=== PATIENT | male | born 1975 | race Caucasian/White ===

== ENCOUNTER 2020-02-16 09:50 | Inpatient (IN) | payer SELFPAY ==
[~2020-02-16] VITALS: Ht 193 cm; Wt 95.0 kg
[2020-02-16] MEDS ORDERED: DEXAMETHASONE SOD PHOS 4 MG/ML VIAL. IVP ONE (10:00)
[2020-02-16] MEDS ORDERED: IV NORMAL SALINE 1,000ML 1,000 ML IV SCH (10:00)
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
[2020-02-16 10:31] LABS: BASO % 0 % (0-3); EOS # 0.1 x10^3/uL (0.0-0.7); EOS % 1 % (0-3); HEMATOCRIT 39.4 % (39.0-53.0); LYMPH # 1.9 x10^3/uL (1.0-4.8); LYMPH % 37 % (24-48); MEAN CORPUSCULAR HEMOGLOBIN 29 pg (25-35); MEAN CORPUSCULAR HGB CONC 33 g/dL (31-37); MEAN CORPUSCULAR VOLUME 88 fL (79-100); MONO # 0.5 x10^3/uL (0.0-1.1); MONO % 9 % (0-9); NEUT # 2.7 x10^3uL (1.8-7.7); NEUT % 52 % (31-73); PLATELET COUNT 268 x10^3/uL (140-400); RED BLOOD COUNT 4.51 x10^6/uL (4.30-5.70); RED CELL DISTRIBUTION WIDTH 13.6 % (11.5-14.5); WHITE BLOOD COUNT 5.2 x10^3/uL (4.0-11.0)
[2020-02-16 10:37] LABS: BGAS PH 7.41 (7.35-7.46)
[2020-02-16 10:37] LABS: HEMOGLOBIN ISTAT 12.9 gm/dL; POTASSIUM ISTAT 3.3 mmol/L (3.5-5.0)
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
[2020-02-16] MEDS ORDERED: ONDANSETRON PF 4 MG/2 ML VIAL. IVP PRN (11:30)
[2020-02-16 11:42] LABS: TOTAL PROTEIN 7.1 g/dL (6.4-8.2)
[2020-02-16 11:44] LABS: ALBUMIN 3.7 g/dL (3.4-5.0); TOTAL BILIRUBIN 0.4 mg/dL (0.2-1.0)
[2020-02-16 11:45] LABS: DIRECT BILIRUBIN 0.1 mg/dL (0.0-0.2); MAGNESIUM 2.3 mg/dL (1.8-2.4)
[2020-02-16 12:11] LABS: BILIRUBIN,URINE NEG (NEG); CLARITY,URINE CLEAR; COLOR,URINE YELLOW; GLUCOSE,URINE NEG (NEG)
[2020-02-16 12:12] LABS: NITRITE,URINE NEG (NEG); UROBILINOGEN,URINE 0.2 mg/dL (0.2 mg/dL)
[2020-02-16 12:13] LABS: BACTERIA,URINE FEW /HPF (0-FEW); GRANULAR CASTS,URINE FEW /HPF; HYALINE CASTS, URINE FEW /HPF; SQUAMOUS EPITHELIAL CELL,UR OCC /LPF
[2020-02-16 14:06] LABS: BARBITURATES NEG (NEG); BENZODIAZEPINES NEG (NEG); CANNABINOIDS NEG (NEG); COCAINE NEG (NEG); METHADONE NEG (NEG); OPIATES NEG (NEG); PHENCYCLIDINE NEG (NEG)
[2020-02-16 14:34] VITALS: BP 126/82
[2020-02-16 14:43] LABS: AMPHETAMINE/METHAMPHETAMINE POS (NEG)
--- NOTE | 2020-02-16 14:54 | NUR ---
ADMISSION NOTE-Pt arrives via EMS at 1410. He transfers off cot into bed ad demarco. No O2 is on patient at this time, VS assessed. Telemetry applied. Denies any home medications, personal medical history, or family history.
--- NOTE | 2020-02-16 15:03 | NUR ---
AMA-Pt leaves AMA at this time. He declines to wait to be seen by Dr Murray, who is here on the floor. This nurse explained the risks of early discharge, et the benefits of overnight monitoring, but pt refuses to stay. AMA form signed. Pt had removed his own PIV site prior to approaching the desk.
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
== END 2020-02-16 15:13 | disposition left against medical advice (07) | DRG 918 ==
LOC: ER 09:50 → 1 SOUTH 11:13
PROVIDERS: ADMIT Internal Medicine; ATTEND Internal Medicine
DX: T58.91XA Toxic effect of carbon monoxide from unspecified source, accidental (unintentional), initial encounter (principal); T59.811A Toxic effect of smoke, accidental (unintentional), initial encounter; Z87.891 Personal history of nicotine dependence; V93.89XA Other injury due to other accident on board unspecified watercraft, initial encounter; Y93.89 Activity, other specified; Y92.89 Other specified places as the place of occurrence of the external cause; Y99.8 Other external cause status; Z53.29 Procedure and treatment not carried out because of patient's decision for other reasons
CPT/HCPCS: 36415; 71045; 80047; 80076; 80307; 81001; 82375; 82803; 83605; 83735; 85025; 87086; 96361; 96374; 96375; G0480; J1100; J2405; J3010; 99291-25; J7030